=== PATIENT | female | born 1955 | race Caucasian/White ===

== ENCOUNTER 2021-02-27 13:25 | Inpatient (IN) ==
[2021-02-28] MEDS: Gabapentin 400 MG CAPSULE PO SCH (20:32)
[2021-02-28] MEDS: Aspirin 81 MG TAB.CHEW PO SCH (20:32)
[2021-02-28] MEDS: Nystatin SUSP 5 ML UD.LIQ PO SCH (20:33)
[2021-02-28] MEDS: Budesonide/Formoterol 160/4.5 1 PUFF INH IH SCH (20:52)
[2021-02-28] MEDS ORDERED: *HR* LORazepam 1 MG TABLET PO SCH ×2 (21:00)
[2021-03-01 05:34] LABS: Hematocrit 38.4 % (35.3-44.9); Hemoglobin 12.6 g/dL (11.5-15.4); Mean Corpuscular HGB Conc 32.8 g/dL (31.6-35.5); Mean Corpuscular Hemoglobin 30.9 pg (28.0-33.3); Mean Corpuscular Volume 94.1 fL (83.0-100.0); Mean Platelet Volume 10.8 fL (9.4-12.4); Platelet Count 270 K/mcL (140-400); Red Blood Count 4.08 M/mcL (3.82-4.97); Red Cell Distribution Width 12.4 % (11.5-14.5); White Blood Count 16.6 K/mcL (4.3-11.1)
[2021-03-01 05:52] LABS: BUN/Creatinine Ratio 33 (6-26); Blood Urea Nitrogen 26 mg/dL (8-23); Calcium 8.5 mg/dL (8.6-10.3); Carbon Dioxide 29 mEq/L (23-29); Chloride 103 mEq/L (98-107); Glucose 98 mg/dL (70-105); Osmolality,Calculated 295 (280-300); Potassium 4.4 mEq/L (3.5-5.1); Sodium 140 mEq/L (136-145); eGFR For African Americans > 60 (> 60); eGFR For Non-African Americans > 60 (> 60)
[2021-03-01] MEDS: Gabapentin 400 MG CAPSULE PO SCH ×2 (07:27→20:24)
[2021-03-01] MEDS: Aspirin 81 MG TAB.CHEW PO SCH ×2 (08:48→20:24)
[2021-03-01] MEDS: Multivit/Ca/Min/Fe/FA 1 TAB TABLET PO SCH (08:48)
[2021-03-01] MEDS: PARoxetine 20 MG TABLET PO SCH (08:48)
[2021-03-01] MEDS: Nystatin SUSP 5 ML UD.LIQ PO SCH ×4 (08:48→20:25)
[2021-03-01] MEDS: dexAMETHasone 4 MG TABLET PO SCH (08:48)
[2021-03-01] MEDS: Cholecalciferol (D-3) 1,000 UNIT (25MCG) TABLET PO SCH (08:48)
[2021-03-01] MEDS ORDERED: *HR* LORazepam 1 MG TABLET PO SCH (09:00)
[2021-03-01] MEDS: Budesonide/Formoterol 160/4.5 1 PUFF INH IH SCH ×2 (09:40→20:20)
[2021-03-01] MEDS ORDERED: *HR* LORazepam 0.5 MG TABLET PO PRN (11:54)
[2021-03-02] MEDS: *HR* Enoxaparin 40 MG/0.4 ML SYRINGE SQ SCH (06:25)
[2021-03-02] MEDS: Budesonide/Formoterol 160/4.5 1 PUFF INH IH SCH ×2 (08:22→22:05)
[2021-03-02] MEDS: Multivit/Ca/Min/Fe/FA 1 TAB TABLET PO SCH (10:03)
[2021-03-02] MEDS: PARoxetine 20 MG TABLET PO SCH (10:03)
[2021-03-02] MEDS: Gabapentin 400 MG CAPSULE PO SCH ×2 (10:03→19:31)
[2021-03-02] MEDS: dexAMETHasone 4 MG TABLET PO SCH (10:03)
[2021-03-02] MEDS: Cholecalciferol (D-3) 1,000 UNIT (25MCG) TABLET PO SCH (10:04)
[2021-03-02] MEDS: Nystatin SUSP 5 ML UD.LIQ PO SCH ×4 (10:04→19:31)
[2021-03-02] MEDS: Aspirin 81 MG TAB.CHEW PO SCH ×2 (10:04→19:35)
[2021-03-03] MEDS: *HR* Enoxaparin 40 MG/0.4 ML SYRINGE SQ SCH (05:08)
[2021-03-03] MEDS: Nystatin SUSP 5 ML UD.LIQ PO SCH ×4 (08:43→21:15)
[2021-03-03] MEDS: Gabapentin 400 MG CAPSULE PO SCH ×2 (08:44→21:15)
[2021-03-03] MEDS: dexAMETHasone 4 MG TABLET PO SCH (08:44)
[2021-03-03] MEDS: PARoxetine 20 MG TABLET PO SCH (08:44)
[2021-03-03] MEDS: Cholecalciferol (D-3) 1,000 UNIT (25MCG) TABLET PO SCH (08:44)
[2021-03-03] MEDS: Multivit/Ca/Min/Fe/FA 1 TAB TABLET PO SCH (08:44)
[2021-03-03] MEDS: Aspirin 81 MG TAB.CHEW PO SCH ×2 (08:44→21:22)
[2021-03-03] MEDS: Budesonide/Formoterol 160/4.5 1 PUFF INH IH SCH ×2 (09:51→21:56)
[2021-03-04] MEDS: *HR* Enoxaparin 40 MG/0.4 ML SYRINGE SQ SCH (05:09)
[2021-03-04 06:32] LABS: Hematocrit 37.7 % (35.3-44.9); Hemoglobin 12.1 g/dL (11.5-15.4); Mean Corpuscular HGB Conc 32.1 g/dL (31.6-35.5); Mean Corpuscular Hemoglobin 30.9 pg (28.0-33.3); Mean Corpuscular Volume 96.2 fL (83.0-100.0); Mean Platelet Volume 10.5 fL (9.4-12.4); Platelet Count 225 K/mcL (140-400); Red Blood Count 3.92 M/mcL (3.82-4.97); Red Cell Distribution Width 13.1 % (11.5-14.5); White Blood Count 12.5 K/mcL (4.3-11.1)
[2021-03-04 06:46] LABS: Alanine Aminotransferase 66 Units/L (7-52); Albumin 3.1 g/dL (3.5-5.7); Albumin/Globulin Ratio 1.3 (1.1-2.2); Alkaline Phosphatase 52 Units/L (34-104); Aspartate Amino Transferase 31 Units/L (13-39); BUN/Creatinine Ratio 36 (6-26); Bilirubin,Total 0.6 mg/dL (0.3-1.0); Blood Urea Nitrogen 32 mg/dL (8-23); Calcium 8.1 mg/dL (8.6-10.3); Carbon Dioxide 28 mEq/L (23-29); Chloride 105 mEq/L (98-107); Globulin 2.4 g/dL (2.4-3.5); Glucose 86 mg/dL (70-105); Magnesium 2.2 mg/dL (1.6-2.6); Osmolality,Calculated 296 (280-300); Potassium 3.9 mEq/L (3.5-5.1); Sodium 140 mEq/L (136-145); Total Protein 5.5 g/dL (6.4-8.9); eGFR For African Americans > 60 (> 60); eGFR For Non-African Americans > 60 (> 60)
[2021-03-04] MEDS: Gabapentin 400 MG CAPSULE PO SCH ×2 (07:55→21:42)
[2021-03-04] MEDS: Nystatin SUSP 5 ML UD.LIQ PO SCH ×4 (08:58→21:41)
[2021-03-04] MEDS: Multivit/Ca/Min/Fe/FA 1 TAB TABLET PO SCH (08:59)
[2021-03-04] MEDS: dexAMETHasone 4 MG TABLET PO SCH (09:00)
[2021-03-04] MEDS: Aspirin 81 MG TAB.CHEW PO SCH ×2 (09:00→21:41)
[2021-03-04] MEDS: PARoxetine 20 MG TABLET PO SCH (09:00)
[2021-03-04] MEDS: Cholecalciferol (D-3) 1,000 UNIT (25MCG) TABLET PO SCH (09:00)
[2021-03-04] MEDS: Budesonide/Formoterol 160/4.5 1 PUFF INH IH SCH ×2 (10:02→21:43)
[2021-03-05] MEDS: *HR* Enoxaparin 40 MG/0.4 ML SYRINGE SQ SCH (05:49)
[2021-03-05] MEDS: Gabapentin 400 MG CAPSULE PO SCH ×2 (07:34→19:30)
[2021-03-05] MEDS: Nystatin SUSP 5 ML UD.LIQ PO SCH ×4 (08:18→19:31)
[2021-03-05] MEDS: Aspirin 81 MG TAB.CHEW PO SCH ×2 (08:19→19:31)
[2021-03-05] MEDS: Multivit/Ca/Min/Fe/FA 1 TAB TABLET PO SCH (08:19)
[2021-03-05] MEDS: PARoxetine 20 MG TABLET PO SCH (08:19)
[2021-03-05] MEDS: Cholecalciferol (D-3) 1,000 UNIT (25MCG) TABLET PO SCH (08:19)
[2021-03-05] MEDS: dexAMETHasone 4 MG TABLET PO SCH (08:19)
[2021-03-05] MEDS: Budesonide/Formoterol 160/4.5 1 PUFF INH IH SCH ×2 (10:57→21:31)
[2021-03-06] MEDS: *HR* Enoxaparin 40 MG/0.4 ML SYRINGE SQ SCH (04:03)
[2021-03-06] MEDS: Aspirin 81 MG TAB.CHEW PO SCH ×2 (08:17→21:52)
[2021-03-06] MEDS: Multivit/Ca/Min/Fe/FA 1 TAB TABLET PO SCH (08:17)
[2021-03-06] MEDS: Cholecalciferol (D-3) 1,000 UNIT (25MCG) TABLET PO SCH (08:17)
[2021-03-06] MEDS: Nystatin SUSP 5 ML UD.LIQ PO SCH ×4 (08:17→21:52)
[2021-03-06] MEDS: PARoxetine 20 MG TABLET PO SCH (08:17)
[2021-03-06] MEDS: Gabapentin 400 MG CAPSULE PO SCH ×2 (08:18→21:52)
[2021-03-06] MEDS: Budesonide/Formoterol 160/4.5 1 PUFF INH IH SCH ×2 (09:20→22:18)
[2021-03-07] MEDS: *HR* Enoxaparin 40 MG/0.4 ML SYRINGE SQ SCH (04:33)
[2021-03-07 05:06] LABS: Basophils # 0.1 K/mcL (0.0-0.2); Basophils % 0.5 %; Eosinophils # 0.5 K/mcL (0.0-0.6); Eosinophils % 4.7 %; Immature Granulocytes % 1.9 % (0-4); Lymphocytes # 2.6 K/mcL (0.6-4.6); Lymphocytes % 26.6 %; Mean Corpuscular HGB Conc 31.6 g/dL (31.6-35.5); Mean Corpuscular Hemoglobin 31.1 pg (28.0-33.3); Mean Corpuscular Volume 98.4 fL (83.0-100.0); Mean Platelet Volume 10.2 fL (9.4-12.4); Monocytes # 0.6 K/mcL (0.0-1.3); Monocytes % 6.5 %; Neutrophils # 5.9 K/mcL (1.6-8.9); Platelet Count 184 K/mcL (140-400); Red Blood Count 3.86 M/mcL (3.82-4.97); Red Cell Distribution Width 13.8 % (11.5-14.5); Segmented Neutrophils % 59.8 %; White Blood Count 9.8 K/mcL (4.3-11.1)
[2021-03-07 05:22] LABS: Calcium 8.1 mg/dL (8.6-10.3); Potassium 4.3 mEq/L (3.5-5.1)
[2021-03-07] MEDS: Budesonide/Formoterol 160/4.5 1 PUFF INH IH SCH ×2 (08:13→21:07)
[2021-03-07] MEDS: Cholecalciferol (D-3) 1,000 UNIT (25MCG) TABLET PO SCH (08:47)
[2021-03-07] MEDS: Nystatin SUSP 5 ML UD.LIQ PO SCH ×4 (08:47→19:35)
[2021-03-07] MEDS: Gabapentin 400 MG CAPSULE PO SCH ×2 (08:47→19:36)
[2021-03-07] MEDS: PARoxetine 20 MG TABLET PO SCH (08:47)
[2021-03-07] MEDS: Multivit/Ca/Min/Fe/FA 1 TAB TABLET PO SCH (08:47)
[2021-03-07] MEDS: Aspirin 81 MG TAB.CHEW PO SCH ×2 (08:47→19:35)
[2021-03-08] MEDS: *HR* Enoxaparin 40 MG/0.4 ML SYRINGE SQ SCH (04:53)
[2021-03-08] MEDS: PARoxetine 20 MG TABLET PO SCH (09:18)
[2021-03-08] MEDS: Multivit/Ca/Min/Fe/FA 1 TAB TABLET PO SCH (09:18)
[2021-03-08] MEDS: Cholecalciferol (D-3) 1,000 UNIT (25MCG) TABLET PO SCH (09:18)
[2021-03-08] MEDS: Nystatin SUSP 5 ML UD.LIQ PO SCH ×4 (09:18→19:47)
[2021-03-08] MEDS: Aspirin 81 MG TAB.CHEW PO SCH ×2 (09:18→19:46)
[2021-03-08] MEDS: Gabapentin 400 MG CAPSULE PO SCH ×2 (09:18→19:47)
[2021-03-08] MEDS: Budesonide/Formoterol 160/4.5 1 PUFF INH IH SCH ×2 (12:01→19:43)
[2021-03-09] MEDS: *HR* Enoxaparin 40 MG/0.4 ML SYRINGE SQ SCH (06:21)
[2021-03-09 06:52] VITALS: BP 109/68
[2021-03-09] MEDS: Nystatin SUSP 5 ML UD.LIQ PO SCH ×2 (08:53→11:38)
[2021-03-09] MEDS: PARoxetine 20 MG TABLET PO SCH (08:54)
[2021-03-09] MEDS: Aspirin 81 MG TAB.CHEW PO SCH (08:54)
[2021-03-09] MEDS: Gabapentin 400 MG CAPSULE PO SCH (08:54)
[2021-03-09] MEDS: Multivit/Ca/Min/Fe/FA 1 TAB TABLET PO SCH (08:54)
[2021-03-09] MEDS: Cholecalciferol (D-3) 1,000 UNIT (25MCG) TABLET PO SCH (08:55)
[2021-03-09] MEDS: Budesonide/Formoterol 160/4.5 1 PUFF INH IH SCH (10:24)
== END 2021-03-09 14:25 | disposition home health service (06) | DRG 178 ==
LOC: INPGRE 02-28 17:25
PROVIDERS: ADMIT Family Medicine; ATTEND Family Medicine